=== PATIENT | male | born 1970 | race Asian ===

== ENCOUNTER 2022-01-16 16:59 | Emergency (ER) | payer OTHER ==
[~2022-01-16] VITALS: Ht 167.6 cm; Wt 63.5 kg
[2022-01-16 17:21] VITALS: BP 117/75
--- NOTE | 2022-01-16 17:50 | NUR ---
Radiology at bedside.
[2022-01-16] MEDS ORDERED: HYDROcodone/APAP 10/325 MG 1 TAB TAB PO ONE (18:00)
[2022-01-16] MEDS ORDERED: HYDR-5080 PO (18:04)
[2022-01-16] MEDS ORDERED: IBUP-2213 PO (18:04)
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
[2022-01-16 19:20] VITALS: BP 128/77
--- NOTE | 2022-01-16 19:21 | NUR ---
Patient discharged with v/s stable. Written and verbal after care instructions given and explained. Patient verbalized understanding. Wheel Chair Assisted. All questions addressed prior to discharge. Advised to follow up with PMD.
== END 2022-01-16 19:20 | disposition home or self-care (01) ==
LOC: MED 16:59
DX: S82.831A Other fracture of upper and lower end of right fibula, initial encounter for closed fracture (principal); Z79.891 Long term (current) use of opiate analgesic; W18.39XA Other fall on same level, initial encounter; Y92.89 Other specified places as the place of occurrence of the external cause; Y93.89 Activity, other specified; Y99.8 Other external cause status
CPT/HCPCS: 29515; 73610; 99283; Q0092